=== PATIENT | female | born 1980 | race Caucasian/White ===

== ENCOUNTER 2020-03-25 20:40 | Emergency (ER) | payer OTHER ==
[~2020-03-25] VITALS: Ht 165.1 cm; Wt 72.8 kg
[2020-03-25 20:48] VITALS: Ht 165.1 cm; Wt 72.8 kg
[2020-03-25] MEDS ORDERED: DICLOFENAC SODI50 MG PO (21:27)
[2020-03-25 21:51] VITALS: BP 122/87
== END 2020-03-25 21:51 | disposition home or self-care (01) ==
LOC: D.ER 20:40
DX: S62.615A Displaced fracture of proximal phalanx of left ring finger, initial encounter for closed fracture (principal); M25.532 Pain in left wrist; W22.8XXA Striking against or struck by other objects, initial encounter; Y93.9 Activity, unspecified; Y92.9 Unspecified place or not applicable